=== PATIENT | female | born 1940 | race Caucasian/White ===

== ENCOUNTER 2016-05-01 10:20 | Observation (INO) | payer MEDICARE, OTHER ==
[2016-05-01 10:56] LABS: BASOPHIL# 0.1 X 10^3uL (0.0-0.1); BASOPHILS 1.1 % (0.0-2.0); EOSINOPHILS 0.3 % (0.0-6.0); HEMOGLOBIN 14.3 g/dL (12.0-16.0); LYMPHOCYTES 29.2 % (20.0-40.0); LYMPHOCYTES# 1.4 X 10^3uL (0.8-3.8); MEAN CELL VOLUME 97.5 fL (84.0-102.0); MEAN CORPUSCULAR HEMOGLOBIN 33.2 pg (29.0-35.0); MONOCYTES 13.4 % (2.0-10.0); MONOCYTES# 0.6 X 10^3uL (0.2-1.0); NEUTROPHILS# 2.7 X 10^3uL (2.6-6.7); PLATELET COUNT 158 X 10^3uL (130-440); RED BLOOD COUNT 4.31 X 10^6uL (4.20-6.10); RED CELL DISTRIBUTION WIDTH 11.5 % (11.5-14.5); WHITE BLOOD COUNT 4.8 X 10^3uL (3.9-10.7)
[2016-05-01 11:06] LABS: BLOOD UREA NITROGEN 14 mg/dL (7-17); CALCIUM 8.8 mg/dL (8.4-10.2); CHLORIDE 91 mmol/L (98-107); CREATININE 0.8 mg/dL (0.5-1.0); EST GLOMERULAR FILTRATION RATE > 60 mL/min; GLUCOSE 121 mg/dL (70-100); POTASSIUM 3.3 mmol/L (3.5-5.1); SODIUM 128 mmol/L (137-145)
[2016-05-01] MEDS ORDERED: NORMAL SALINE 500 ML IV ONE (11:15)
[2016-05-01 11:18] LABS: TROPONIN I < 0.012 ng/mL (0.00-0.034)
[2016-05-01] MEDS ORDERED: HOME MEDICATION LIST NEEDED 1 EA EACH MC ONE (11:47)
[2016-05-01] MEDS ORDERED: POTASSIUM CHLORIDE/NS 1,000 ML IV SCH ×2 (12:00→17:38)
[2016-05-01] MEDS ORDERED: POTASSIUM EFF 25 MEQ TABLET ONE (12:01)
[2016-05-01 12:32] LABS: URINE MUCUS NONE SEEN (Up to 25%); URINE RBC NONE SEEN (0-5/hpf)
--- NOTE | 2016-05-01 12:44 | ER NURSING DOCUMENTATION ---
Nurse's Notes [place] Name:Letty Wiggins Age:75 yrs Sex:Female :1940 Arrival Date:05/01/2016 Time:10:20 BedTrauma B Private MD:Meghna Guzman Diagnosis:Syncope;Hyponatremia;Hypokalemia Presentation: 05/01 10:20 Presenting complaint: Patient states: Pt describes brief syncopal episode two nights ma ago and again last night Witnessed by who states pt fell to knees the first time and was seated in chair the second Pt states felt hot prior or episode, had emesis after second episode States felt very hot at time of incidents Denies injury or pain, no SOB. 10:34 Acuity: STEFAN 2 st 10:58 Transition of care: Home. ma 10:58 Method Of Arrival: Private Vehicle ma Triage Assessment: 10:15 General: Appears in no apparent distress, well nourished, well groomed, Behavior is ma cooperative. Pain: Denies pain. Neuro: No deficits noted. Reports a syncopal episode. Historical: - Allergies: Codeine; SULFA (SULFONAMIDES); Tramadol HCl; - Home Meds: 1. levothyroxine 75 mcg oral tab 1 tab once daily 2. atorvastatin oral 1 tab once daily 3. paroxetine HCl 12.5 mg oral Tb24 1 tab once daily 4. budesonide 3 mg oral CECX 1 Cap once daily 5. HCTZ 25MG once daily 6. Caltrate 600 + D 600 mg (1,500 mg)-800 unit oral chew 7. One-A-Day Essential oral tab - PMHx: collagenous colitis, for which she takes budesonide, 3 mg daily.; HYPOTHYROIDISM; HIGH CHOLESTEROL; DEPRESSION; HYPERTENSION; Hyperlipidemia; Osteoarthritis; - PSHx: MASTECTOMY, LEFT; MASTECTOMY, RIGHT; Spinal surgery; - Tetanus: unknown. - Ebola Screening: : No symptoms or risks identified at this time. . - Immunization history: Flu Vaccine < 1 year. - Social history: Smoking status: Patient states former smoker of tobacco. Patient uses alcohol on a daily basis. Screenin:23 Infectious Disease Risk None. Abuse screen: Denies threats or abuse. Nutritional ma screening: No deficits noted. Assessment: 11:10 Neuro: Level of Consciousness is awake, alert. Cardiovascular: Rhythm is sinus rhythm. ma 11:15 Cardiovascular: Rhythm is sinus rhythm. ma Vital Signs: 10:20 BP 136 / 60; Pulse 67; Resp 12; Temp 98.5; Pulse Ox 88% on R/A; Weight 54.43 kg; Height ma 5 ft. 0 in. (152.40 cm); Pain 0/10; 10:45 BP 133 / 67; Pulse 63; Resp 15; Pulse Ox 96% on 2 lpm NC; Pain 0/10; ma 11:15 BP 136 / 60; Pulse 59; Resp 15; Pulse Ox 98% on 2 lpm NC; Pain 0/10; ma 11:45 BP 141 / 62; Pulse 60; Resp 14; Pulse Ox 99% on 2 lpm NC; Pain 0/10; ma 10:20 Body Mass Index 23.44 (54.43 kg, 152.40 cm) ma ED Course: 10:11 Oxygen Oxygen administration via nasal cannula @ 2L/min. ma 10:20 Inserted peripheral IV: 20 gauge in left antecubital area and blood collected. ma 10:20 shelter monitor on. Pulse ox on. NIBP on. ma 10:22 Patient arrived in ED. ds 10:22 Meghna Guzman MD is Private Physician. ds 10:24 Alejandro Ibrahim MD is Attending Physician. jm 10:34 Anjelica Hancock RN is Primary Nurse. st 10:[address] 10:37 EKG done. (by ED staff). Reviewed by Alejandro Ibrahim MD. ma 11:00 Port Xray Completed. tt 11:24 Valuables Given to family. ma 11:45 Meghna Guzman MD is Admitting Physician. jm 13:58 EKG attached ma Administered Medications: 11:10 Drug: NS 0.9% 500 ml; Route: IV; Rate: bolus; Site: left antecubital; Delivery: [place] ma Tubing; 11:15 Follow up: IV Status: Completed infusion; IV Intake: 500ml ma 11:55 Drug: Potassium Effervescent Tablet 50 mEq; Route: PO; ma 12:40 Follow up: Response: No adverse reaction ma Intake: 11:15 IV: 500ml; Total: 500ml. ma Outcome: 11:45 Decision to Admit by Provider. luke 12:43 Admitted to Med/surg ma 12:43 Condition: stable 12:43 Report given to Adry URRUTIA 12:43 Instructed on need to admit 12:43 Patient left the ED. ma Signatures: Anjelica Hancock, Anna Machuca RN, RN RN ma Srot, Marilyn, Jarett Reg Alejandro Zheng MD MD jm Terriere, Tracy tt
--- NOTE | 2016-05-01 12:44 | ER PHYSICIAN DOCUMENTATION ---
Physician Documentation [facility] Name:Letty Wiggins Age:75 yrs Sex:Female :1940 Arrival Date:05/01/2016 Time:10:20 BedTrauma B Private MD:Meghna Guzman ED PhysicianMeAlejandro hendricks Disposition: 05/01/16 11:45 Admit ordered for Meghna Guzman. Preliminary diagnosis are Syncope, Hyponatremia, Hypokalemia. - Bed requested for Medical/Surgical. - Condition is Fair. - Problem is new. - Symptoms are unchanged. 23 HR OBS Yes HPI: 05/01 11:01 This 75 yrs old Female presents to ER via Private Vehicle with complaints of jm Syncope. 11:01 The patient has experienced syncope, became unresponsive, lost consciousness. Onset: jm The symptom(s)/episode began/occurred yesterday. Duration: The patient has had multiple episodes, that last 3 minute(s). Context: the episode(s) was witnessed, by family, . Associated injury: The patient did not suffer any apparent associated injury. Associated signs and symptoms: The patient has no apparent associated signs or symptoms. Current symptoms: Currently, the patient is not experiencing any symptoms. The patient has not experienced similar symptoms in the past. The patient has not recently seen a physician. 75 yo F w 2 episodes of syncope over the weekend. On Sunday, she quickly got out of bed and rushed to the bathroom, b/c she thought she was going to vomit. She then got dizzy, flushed, and passed out on the floor. Her said she was there for about 3 minutes, unresponsive, but eventually came to. The other episode was at dinner last night. She again got dizzy and flushed while seated. She passed out for about a minute, slouched din the chair. She awoke and vomited everything she had just ate. She tried to get a clinic appointment this AM w Dr. Guzman, but the track helper wanted her seen in the ER first. Currently, pt feels normal. She is dealing w a cold, but that is getting better. . Historical: - Allergies: Codeine; SULFA (SULFONAMIDES); Tramadol HCl; - Home Meds: 1. levothyroxine 75 mcg oral tab 1 tab once daily 2. atorvastatin oral 1 tab once daily 3. paroxetine HCl 12.5 mg oral Tb24 1 tab once daily 4. budesonide 3 mg oral CECX 1 Cap once daily 5. HCTZ 25MG once daily 6. Caltrate 600 + D 600 mg (1,500 mg)-800 unit oral chew 7. One-A-Day Essential oral tab - PMHx: collagenous colitis, for which she takes budesonide, 3 mg daily.; HYPOTHYROIDISM; HIGH CHOLESTEROL; DEPRESSION; HYPERTENSION; Hyperlipidemia; Osteoarthritis; - PSHx: MASTECTOMY, LEFT; MASTECTOMY, RIGHT; Spinal surgery; - Tetanus: unknown. - Ebola Screening: : No symptoms or risks identified at this time. . - Immunization history: Flu Vaccine < 1 year. - Social history: Smoking status: Patient states former smoker of tobacco. Patient uses alcohol on a daily basis. ROS: 11:05 Constitutional: Negative for body aches, fever. 11:05 Eyes: Negative for blurry vision. 11:05 ENT: Negative for sinus congestion, sinus pain, sore throat. 11:05 Cardiovascular: Negative for chest pain, palpitations. 11:05 Respiratory: Negative for cough, shortness of breath. 11:05 Abdomen/GI: Positive for vomiting, Negative for abdominal pain, constipation. 11:05 Back: Negative for injury or acute deformity, pain with movement, radiated pain. 11:05 : Negative for urinary symptoms. 11:05 MS/extremity: Negative for swelling, tenderness. 11:05 Neuro: Positive for syncope. 11:05 Psych: Negative for drug dependence, alcohol dependence. 11:05 All other systems are negative. Exam: 11:18 Head/Face: Normocephalic, atraumatic. 11:18 Constitutional: The patient appears alert, awake. 11:18 Eyes: Pupils: equal, round, and reactive to light and accomodation, Extraocular movements: intact throughout. 11:18 ENT: Mouth: Oral mucosa: normal, Voice: is normal. 11:18 Neck: Exam negative for bruits, Thyroid: appears normal. 11:18 Cardiovascular: Rate: normal, Rhythm: regular. 11:18 Respiratory: Respirations: normal, Breath sounds: are normal. 11:18 Abdomen/GI: Bowel sounds: normal, Palpation: abdomen is soft and non-tender. 11:18 Musculoskeletal/extremity: DVT Exam: No signs of deep vein thrombosis. Calves: are non-tender, have equal circumference. 11:18 Skin: Appearance: Color: pink, no rash present. 11:18 Neuro: Mentation: is normal, Memory: is normal. 11:18 Psych: Behavior/mood is pleasant, cooperative, Affect is calm. Vital Signs: 10:20 BP 136 / 60; Pulse 67; Resp 12; Temp 98.5; Pulse Ox 88% on R/A; Weight 54.43 kg; Height ma 5 ft. 0 in. (152.40 cm); Pain 0/10; 10:45 BP 133 / 67; Pulse 63; Resp 15; Pulse Ox 96% on 2 lpm NC; Pain 0/10; ma 11:15 BP 136 / 60; Pulse 59; Resp 15; Pulse Ox 98% on 2 lpm NC; Pain 0/10; ma 11:45 BP 141 / 62; Pulse 60; Resp 14; Pulse Ox 99% on 2 lpm NC; Pain 0/10; ma 10:20 Body Mass Index 23.44 (54.43 kg, 152.40 cm) la MDM: 10:24 Patient medically screened. 11:43 Differential Diagnosis: cardiac arrhythmia, emotional response, idiopathic syncope, jm vasovagal episode. Data reviewed: vital signs, nurses notes, old medical records, lab test result(s), EKG, radiologic studies, and as a result, I will admit patient. Test interpretation: by ED physician or midlevel provider: plain radiologic studies, ECG. Counseling: I had a detailed discussion with the patient and/or guardian regarding: the historical points, exam findings, and any diagnostic results supporting the discharge/admit diagnosis, lab results, radiology results, the need for further work-up and treatment in the hospital. ECG:. Physician consultation: Meghna Guzman MD regarding admission, and will see patient shortly, later today. Admission orders: after a detailed discussion of the patient's condition and case, the admit orders are written by me. ED course: Pt here for syncope and found to be hyponatremic and hypokalemia. Arrythmia is high on diff dx, since her urine is dilute. Dr. Guzman updated on pt's condition and agrees to admission for replacement. . 13:58 EKG attached la 05/01 10:57 Order name: CBC AUTO DIF, MDIF/RMOR IF IND; Complete Time: 11:20 EDMS 05/01 11:18 Order name: BASIC METABOLIC PANEL; Complete Time: 11:20 [facility] 05/01 11:19 Order name: TROPONIN I; Complete Time: : [facility] 05/01 10:40 Order name: 12-lead EKG; Complete Time: 05/01 10:40 Order name: Continuous Cardiac Monitoring; Complete Time: : 05/01 10:40 Order name: I & O; Complete Time: 05/01 10:40 Order name: NPO; Complete Time: 05/01 10:40 Order name: Pulse Ox Continuous; Complete Time: 05/01 12:42 Order name: Oxygen; Complete Time: 12:42 ma EC:43 Rhythm is regular. QRS [place] is Normal. QRS interval is normal. QT interval is normal. No Q waves. T waves are Normal. No ST changes noted. Dispensed Medications: 11:10 Drug: NS 0.9% 500 ml; Route: IV; Rate: bolus; Site: left antecubital; Delivery: [place] ma Tubing; 11:15 Follow up: IV Status: Completed infusion; IV Intake: 500ml la 11:55 Drug: Potassium Effervescent Tablet 50 mEq; Route: PO; ma 12:40 Follow up: Response: No adverse reaction ma Signatures: Anna Horvath RN RN ma Meyer, John, MD MD jm
[2016-05-01 13:13] LABS: URINE APPEARANCE CLEAR; URINE BACTERIA NONE SEEN (<10/hpf); URINE BILIRUBIN NEGATIVE (NEGATIVE); URINE BLOOD NEGATIVE (NEGATIVE); URINE COLOR YELLOW; URINE GLUCOSE NORMAL (NEGATIVE); URINE KETONE NEGATIVE (NEGATIVE); URINE LEUKOCYTE ESTERASE NEGATIVE (NEGATIVE); URINE NITRITE NEGATIVE (NEGATIVE); URINE PROTEIN NEGATIVE (NEG - TRACE); URINE SQUAMOUS EPITHELIAL CELL 0-5/hpf (<= 15/hpf); URINE UROBILINOGEN NORMAL (NEG-1mg/dL); URINE WBC 0-4/hpf (0-4/hpf)
[2016-05-01 14:10] LABS: ALBUMIN 3.6 g/dL (3.5-5.0); BILIRUBIN, DIRECT 0.3 mg/dL (0.0-0.4); BILIRUBIN, TOTAL 0.5 mg/dL (0.2-1.3); TOTAL PROTEIN 6.3 g/dL (6.3-8.2)
[2016-05-01 14:28] LABS: FREE T4 1.68 ng/dL (0.78-2.19)
--- NOTE | 2016-05-01 14:34 | RADIOLOGY REPORT ---
A limited single portable view of the chest is compared with prior films dated . The heart and vessels are stable and unremarkable. The lung edward are clear. No infiltrate, fluid or pneumothorax is seen. IMPRESSION: Stable, unremarkable limited single portable view of the chest. MTDD
[2016-05-01 14:41] LABS: THYROID STIMULATING HORMONE 0.67 uIU/mL (0.47-4.68)
--- NOTE | 2016-05-01 16:27 | HISTORY & PHYSICAL ---
DATE OF ADMISSION: 05/01/16 ATTENDING PHYSICIAN: Meghna Guzman MD CHIEF COMPLAINT: Loss of consciousness. HISTORY OF PRESENT ILLNESS: This is a 75-year-old white female who presented to the Emergency Room after 2 episodes of syncope. She states that she went to lie down at approximately 7:30-8:00 p.m. 2 nights ago because she felt poorly. She developed a hot flash, and then got up to the bathroom because she felt quite nauseated. She then collapsed and landed on the floor without injuring herself. Her witnessed the event. He states that she was not responsive for 3-4 minutes. She was mildly confused initially when she came to, but then crawled back to bed. She states that she had no precedent chest pain, shortness of breath, lightheadedness or dizziness. She awoke the next day with no complaints. Last night after dinner, she was sitting in the chair and then developed another hot flash. She then had another syncopal episode which her states was less than 1 minute. She then developed profuse nonbloody, non -bilious vomiting after she awakened. Again, she had no chest pain, shortness of breath or lightheadedness. She then went to bed. She slept well. She states that she got up to go the bathroom at 4:30 a.m. this morning and could not fall back asleep. She awakened fatigued, but she had no further nausea or vomiting. No witnessed seizures. She called our triage and was told to go to the Emergency Room. REVIEW OF SYSTEMS: She has had a cough which is productive for the last 5 days; however, she is not able to bring up any sputum. She states that she needs to sleep in a chair because lying down made the cough worse. For the past 2 nights , she has been sleeping with 2 pillows. No fevers, chills or sweats. She has had a throat tickle but no true sore throat. She has had some postnasal drainage at night. She has not had any associated shortness of breath. No chest pain. No chest tightness. No wheezing. She has had some nonbloody diarrhea. For two days she used some Imodium with relief. They did go to [place] 2 days ago. She has not eaten any contaminated food that she is aware of. No bloody stools. No abdominal pain. No dysuria. No rash. No myalgias. No arthralgias. She continues to have some sciatica pain. PAST MEDICAL HISTORY 1. Hypertension. 2. Hyperlipidemia. 3. Hypothyroidism. 4. Chronic venous insufficiency. 5. Basal cell carcinoma left arm. 6. Glucose intolerance with non-fasting glucose 194 and Hemoglobin A1C 5.7. 7. Remote history of breast cancer 1981. 8. History of chronic cough. 9. Spinal stenosis of lumbar region with radiculopathy. 10. Depression. 11. Osteopenia. 12. History of anomalous atrioventricular excitation. 13. Atrophic vaginitis 14. Gastroesophageal reflux disease. 15. Generalized osteoarthritis. 17. Collagenous colitis. PAST SURGICAL HISTORY 1. 04/07/15: Status post lumbar laminectomy with right L5, S1 hemilaminectomy. Resection of a synovial cyst. 3. Laparoscopy for ovarian cyst. MEDICATIONS Paxil ER 12.5 mg daily. Atorvastatin 10 mg at bedtime. Levoxyl 75 mcg daily. Hydrochlorothiazide 25 mg daily. Flonase 2 squirts each nostril daily. Entocort EC 3 mg in the morning. Ocuvite daily. Ibuprofen 200 mg 2 tablets 3 times daily. Multivitamin daily. Calcium with vitamin D 500/200 International Units twice daily. ALLERGIES: Tramadol (dizziness, diaphoresis, hot flash), sulfa (hives), Codeine (sweaty and altered mental status). SOCIAL HISTORY: She has been to [place] since 1958. 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 Three children. Alcohol use is 1 daily. Tobacco use, she is a former smoker, 10 pack years, quit at the age of 26. FAMILY HISTORY: Mom at the age of 86, she had hypertension and osteoporosis. Dad at the age of 79 and had cerebrovascular accident and myocardial infarction. She has a sister with osteoporosis and breast cancer, which was diagnosed at the age of 74. DATA: Laboratories done in the Emergency Room, CBC is unremarkable. Basic metabolic panel, sodium 128, potassium 3.3, chloride 91. Nonfasting glucose 121. Troponin negative. Urinalysis with specific gravity 1.010, otherwise negative. EKG: Was reported normal in the Emergency Room. It is not available at the time of dictation. IMAGING: Chest x-ray was also reported as normal. Will review. PHYSICAL EXAMINATION VITAL SIGNS: In the emergency room temperature 98.5, respiratory rate 12, pulse 67, blood pressure 136/60, 88% on room air. She is 99% on 2 liters per minute per nasal cannula. GENERAL: This is a well-appearing, very pleasant female who appears younger than her stated age in no apparent distress. HEENT: Her sclerae are clear. Her pupils are equal, round and reactive to light. Extraocular movements are intact. Her TMs are clear. Her nares are clear. Her oropharynx is clear. NECK: Her neck is supple with no carotid bruits. No lymphadenopathy. No jugular venous distention. LUNGS: Good aeration throughout and clear. HEART: Regular rate and rhythm without any murmurs, rubs or gallops. ABDOMEN: Soft, nontender, nondistended with good bowel sounds and no masses or hepatosplenomegaly. EXTREMITIES: Warm. Chronic venous stasis changes. No cyanosis, clubbing or edema. Nontender. Negative Homans. No palpable cords. Good peripheral pulses. NEUROLOGIC: Alert, awake and oriented x3. Cranial nerves 2-12 are grossly intact without focal deficits. Her motor, sensation and DTRs are intact. ASSESSMENT: This is a 75-year-old female who presents with two syncopal episodes and hyponatremia. PLAN 1. Fluids, electrolytes and nutrition. Patient has been on Hydrochlorothiazide and Paxil for many years. Will hold Hydrochlorothiazide and most likely will have to change to alternative blood pressure medication as an outpatient. IV fluids. Will replete potassium and follow sodium. Check sodium studies. Antiemetics. 2. Cardiovascular. The initial EKG and cardiac enzyme negative. Will repeat troponin and EKG. Cardiology consult. 3. Respiratory. Patient with negative chest x-ray. Lungs are clear. She has had a precedent cough. Continue to follow. 4. Endocrine. Patient with history of hypothyroidism. Continue thyroid replacement. Check thyroid labs. 5. Psychosocial. Patient with long standing history of depression which has been stable. She is on Paxil which can cause hyponatremia. Will follow closely as an outpatient as she has been on Paxil for many years and would rather not change to a different agent given the difficulties of weaning from Paxil. 6. Disposition. Full COR. Admitted to observation. Anticipate discharge tomorrow. [facility]
--- NOTE | 2016-05-01 16:42 | CONSULTATION ---
DATE OF CONSULTATION: 05/01/16 REFERRING PHYSICIAN: Meghna Guzman MD PRIMARY CARE PHYSICIAN: Patti Lake MD REASON FOR CONSULTATION: Syncope. HISTORY OF PRESENT ILLNESS: The patient is a 75-year-old female without prior known cardiovascular disease. She was admitted to [facility] this morning 05/01/16 for further evaluation of syncope. She has had 2 syncopal episodes. The first episode occurred Sunday night, 2 nights prior to admission. She states that she was in her usual state of health when she began feeling nauseous and hot. She went into the bathroom where she thought she might vomit. She was standing over the sink, when she had a syncopal spell and collapsed to the ground. This was witnessed by her . He estimates that she was passed for a couple of minutes before coming to. The following evening, she had a second syncopal spell. This occurred while sitting. She again described feeling hot and took off her sweater. She then had a syncopal spell witnessed by her again. She states he thought she was passed out for a minute or so. She had emesis when she came to. She denied any chest pain or shortness of breath during either episode. She notified her primary care physician the following morning, whose office recommended that she be seen in the Emergency Department. she has been seen and admitted to telemetry for further evaluation. She is currently feeling well. She has had no prior similar episodes. She denies any recent exertional chest pain or dyspnea. She had a normal stress echocardiogram last year as part of a preoperative evaluation. EKG on admission reviewed by me, demonstrated sinus rhythm with no acute ST-T changes and normal intervals. Admission chest x-ray was benign. MEDICATIONS Hydrochlorothiazide. Atorvastatin. Paxil. Synthroid. Multivitamin. Calcium. REVIEW OF SYSTEMS GENERAL: Generally has been feeling well with no fevers or chills. No weight gain or weight loss. No stroke or transient ischemic attack-like symptoms. CHEST: No cough. No hemoptysis. No dyspnea on exertion. CARDIOVASCULAR: No chest pain. No palpitations. No dyspnea. No paroxysmal nocturnal dyspnea or orthopnea. No leg edema. ABDOMEN: No prior constipation, diarrhea or abdominal pain. MUSCULOSKELETAL: No significant arthritis. No joint swelling. No rash. PHYSICAL EXAMINATION VITAL SIGNS: Blood pressure 104/65, pulse 66 in sinus rhythm. O2 saturation 95 % on 1 liter. NECK: Neck veins are not elevated. Carotid upstrokes are normal with no bruits. CHEST: Chest sounds are clear to auscultation. No wheeze or rales. CARDIAC: No left ventricular, right ventricular or PA lift. S1 and S2 are normal. No murmur. No rub. ABDOMEN: Soft, nontender, nondistended. EXTREMITIES: No edema. Peripheral pulses are palpable and normal bilaterally in upper and lower extremities. NEURO: Nonfocal. LABORATORY DATA: Sodium was 128, potassium 3.3, chloride 91, glucose 121. AST 53 , ALT 61. TSH 0.67. NT-pro-BNP 173, troponin is normal. Hemoglobin 14.3. IMPRESSION 1. Syncopal episode, symptoms suspicious for bradyarrhythmia. 2. Prerenal azotemia likely precipitated by Hydrochlorothiazide. 3. Hypokalemia as above. 4. Prior normal Dobutamine stress echocardiogram 03/2015. 5. History of hypertension, currently well controlled. RECOMMENDATION: The patient will be monitored on telemetry overnight. If she has no events, would recommend an event monitor at discharge. I would discontinue Hydrochlorothiazide at this time and not resume. If needed for blood pressure, would consider an [place] inhibitor and/or Amlodipine. Cardiology will follow up with her in the morning. All questions answered. Thank you for asking us to participate in the care of this very nice patient. ALBINA
[2016-05-01] MEDS ORDERED: BUDESONIDE 3 MG PO SCH (17:15)
[2016-05-01] MEDS ORDERED: ONDANSETRON HCL 4 MG/2 ML VIAL IV PRN (17:34)
[2016-05-01] MEDS: ACETAMINOPHEN 325 MG TABLET PO PRN (20:23)
[2016-05-01] MEDS ORDERED: ATORVASTATIN CALCIUM 10 MG TABLET PO SCH (21:00)
[2016-05-02 02:42] VITALS: O2SAT 91
[2016-05-02 06:09] LABS: ALBUMIN 3.6 g/dL (3.5-5.0); ALKALINE PHOSPHATASE 65 U/L (38-126); ALT 57 U/L (9-52); AST 52 U/L (14-36); BILIRUBIN, DIRECT 0.3 mg/dL (0.0-0.4); BILIRUBIN, TOTAL 0.4 mg/dL (0.2-1.3); BLOOD UREA NITROGEN 10 mg/dL (7-17); CALCIUM 8.8 mg/dL (8.4-10.2); CHLORIDE 100 mmol/L (98-107); CREATININE 0.7 mg/dL (0.5-1.0); EST GLOMERULAR FILTRATION RATE > 60 mL/min; GLUCOSE 89 mg/dL (70-100); POTASSIUM 3.9 mmol/L (3.5-5.1); SODIUM 139 mmol/L (137-145); TOTAL PROTEIN 6.5 g/dL (6.3-8.2)
[2016-05-02 06:46] VITALS: BP 161/75; RESP 12; TEMP 98.5
[2016-05-02] MEDS: ACETAMINOPHEN 325 MG TABLET PO PRN (08:10)
--- NOTE | 2016-05-02 08:38 | PROGRESS NOTE: IM SOAP ---
IM: PN Subjective General: good appetite, no fever, no chills HEENT: no headache Cardiovascular: no chest pain, no palpitations, no dizziness Respiratory: cough (Improving.), no wheeze, no SOB Gastrointestinal: no abdominal pain, no nausea, no vomiting, no diarrhea Genitourinary: polyuria Musculoskeletal: no pain IM: PN Objective Exam - I&O/Vital Signs I&O: Intake & Output 05/01/16 05/02/16 05/02/16 21:59 05:59 13:59 Intake Total 660 900 240 Output Total 1999 1050 Balance -1340 -150 240 Intake: IV 600 Left Antecubital 600 Oral 660 300 240 Output: Urine 1999 1050 Other: Urine Appearance Clear Clear Urine Color Pale Pale Yellow Stool Size Small Stool Characteristics Formed Brown Voiding Method Toilet Toilet # Voids 3 4 # Bowel Movements 1 0 Vital Signs: Last Vital Signs Temp 36.9 C 05/02/16 06:44 Pulse 65 05/02/16 06:44 Resp 12 05/02/16 06:44 BP 161/75 05/02/16 06:44 Pulse Ox 91 05/02/16 06:44 Oxygen Flow Rate 1 Oxygen Delivery Method Nasal Cannula - Constitutional General appearance: Present: average body habitus. Absent: acute distress - Head Head exam: Present: atraumatic, normal inspection, normocephalic - Eye Eye exam: Present: EOMI, PERRL - ENT ENT exam: Present: mucous membranes moist - Neck Neck exam: Present: full ROM - Respiratory Respiratory exam: Present: clear. Absent: accessory muscle use, respiratory distress - Cardiovascular Cardiovascular exam: Present: RRR. Absent: clicks, gallop, systolic murmur - GI/Abdominal GI/Abdominal exam: Present: normal bowel sounds, soft. Absent: mass, organomegaly, tenderness - Extremities Exam Extremities exam: Absent: calf tenderness, Cordelia's Sign, edema - Neurological Exam Neurological exam: Present: alert, oriented X3 - Allied Health Notes Allied health notes reviewed: nursing - Lab Labs: Laboratory Last Values WBC 4.8 X 10^3uL (3.9-10.7) 05/01/16 10:45 RBC 4.31 X 10^6uL (4.20-6.10) 05/01/16 10:45 Hgb 14.3 g/dL (12.0-16.0) 05/01/16 10:45 Hct 42.0 % (36.0-48.0) 05/01/16 10:45 MCV 97.5 fL (84.0-102.0) 05/01/16 10:45 MCH 33.2 pg (29.0-35.0) 05/01/16 10:45 MCHC 34.0 g/dL (32.0-36.0) 05/01/16 10:45 RDW 11.5 % (11.5-14.5) 05/01/16 10:45 Plt Count 158 X 10^3uL (130-440) 05/01/16 10:45 MPV 10.0 fL (7.4-10.4) 05/01/16 10:45 Neutrophils % 56.0 % (54.0-75.0) 05/01/16 10:45 Lymphocytes % 29.2 % (20.0-40.0) 05/01/16 10:45 Eosinophils % 0.3 % (0.0-6.0) 05/01/16 10:45 Basophils % 1.1 % (0.0-2.0) 05/01/16 10:45 Neutrophils # 2.7 X 10^3uL (2.6-6.7) 05/01/16 10:45 Lymphocytes # 1.4 X 10^3uL (0.8-3.8) 05/01/16 10:45 Monocytes 13.4 % (2.0-10.0) H 05/01/16 10:45 Monocytes # 0.6 X 10^3uL (0.2-1.0) 05/01/16 10:45 Eosinophils # 0.0 X 10^3uL (0.0-0.4) 05/01/16 10:45 Basophils # 0.1 X 10^3uL (0.0-0.1) 05/01/16 10:45 Sodium 139 mmol/L (137-145) D 05/02/16 05:00 Potassium 3.9 mmol/L (3.5-5.1) 05/02/16 05:00 Chloride 100 mmol/L (98-107) 05/02/16 05:00 Carbon Dioxide 33 mmol/L (22-30) H 05/02/16 05:00 BUN 10 mg/dL (7-17) 05/02/16 05:00 Creatinine 0.7 mg/dL (0.5-1.0) 05/02/16 05:00 GFR Calculation > 60 mL/min 05/02/16 05:00 Glucose 89 mg/dL (70-100) 05/02/16 05:00 Calcium 8.8 mg/dL (8.4-10.2) 05/02/16 05:00 Total Bilirubin 0.4 mg/dL (0.2-1.3) 05/02/16 05:00 Direct Bilirubin 0.3 mg/dL (0.0-0.4) 05/02/16 05:00 AST 52 U/L (14-36) H 05/02/16 05:00 ALT 57 U/L (9-52) H 05/02/16 05:00 Alkaline Phosphatase 65 U/L (38-126) 05/02/16 05:00 Troponin I < 0.012 ng/mL (0.00-0.034) 05/01/16 16:40 NT-Pro-B Natriuret Pep 173 pg/mL (<450) 05/01/16 10:45 Total Protein 6.5 g/dL (6.3-8.2) 05/02/16 05:00 Albumin 3.6 g/dL (3.5-5.0) 05/02/16 05:00 TSH 0.67 uIU/mL (0.47-4.68) D 05/01/16 10:45 Free T4 1.68 ng/dL (0.78-2.19) 05/01/16 10:45 Urine Color Yellow 05/01/16 12:25 Urine Appearance Clear 05/01/16 12:25 Urine pH 7.0 (5-7) 05/01/16 12:25 Ur Specific [place] 1.010 (0.001-1.035) 05/01/16 12:25 Urine Protein Negative (NEG - TRACE) 05/01/16 12:25 Urine Ketones Negative (NEGATIVE) 05/01/16 12:25 Urine Blood Negative (NEGATIVE) 05/01/16 12:25 Urine Nitrate Negative (NEGATIVE) 05/01/16 12:25 Urine Bilirubin Negative (NEGATIVE) 05/01/16 12:25 Urine Urobilinogen Normal (NEG-1mg/dL) 05/01/16 12:25 Ur Leukocyte Esterase Negative (NEGATIVE) 05/01/16 12:25 Urine RBC None seen (0-5/hpf) 05/01/16 12:25 Urine WBC 0-4/hpf (0-4/hpf) 05/01/16 12:25 Ur Squamous Epith Cells 0-5/hpf (<= 15/hpf) 05/01/16 12:25 Urine Bacteria None seen (<10/hpf) 05/01/16 12:25 Urine Mucus None seen (Up to 25%) 05/01/16 12:25 Urine Osmolality Cancelled 05/01/16 13:45 Urine Sodium Cancelled 05/01/16 13:45 Urine Glucose Normal (NEGATIVE) 05/01/16 12:25 Assessment and Plan - Date of Encounter Date of Encounter: 05/02/16 (1) Syncope Status: Acute Assessment and plan: She presented with 2 episodes of syncope at home. Her cardiology evaluation here has been negative with 2 normal EKGs, negative cardiac enzymes, and no arrhythmias overnight on telemetry. I appreciate cardiology input. Consider event monitor as an outpatient. She will ambulate in the halls this morning and we will wean her oxygen. As long as she is an ambulating without difficulty , we will discharge later today. Current Visit: Yes (2) Hyponatremia Status: Acute Assessment and plan: Sodium 128 upon admission. She had an elevated nonfasting blood sugar of 194 recently with hemoglobin A1c 5.7. She has not had polydipsia and polyuria at home. We have started an evaluation for diabetes insipidus. Sodium has normalized this morning with IV fluids. Her urine sodium was 52. The remainder of her urine and antidiuretic hormone studies are pending. Hydrochlorothiazide stopped. We will continue Paxil as an outpatient. Follow sodium closely. Current Visit: Yes (3) Hypokalemia Status: Acute Assessment and plan: Hypokalemia also repleted overnight. Current Visit: Yes (4) Hypertension Status: Chronic Assessment and plan: She has long-standing hypertension. She has only taken hydrochlorothiazide in the past. As above, hydrochlorothiazide has been discontinued given low sodium. Low blood pressures in the 90s last evening. however overnight, her blood pressures were higher in the 130s to 150s. I appreciate Dr. Davidson's input. Will allow permissive blood pressures to 150s upon discharge. She will follow-up with Dr. Davidson as an outpatient. Current Visit: Yes (5) Abnormal LFTs Status: Acute Assessment and plan: Mildly elevated transaminases of uncertain etiology. She is on a statin. She has had elevation of AST to 41 in the past with resolution with repeat lab testing. We'll repeat LFTs as an outpatient. Current Visit: Yes (6) Hypothyroidism Status: Chronic Assessment and plan: TSH low normal and free T4 normal. Will continue same dose of levothyroxine for now. Current Visit: Yes - Time Spent With Patient Total time spent with greater than 50% in coordination of care (as documented) at patient's floor/unit and/or counseling patient: 16-24 minutes Estimated anticipated discharge: Later today. Quality Questions - VTE Prophylaxis Assessment VTE Present on Admission?: No Patient at risk for venous thromboembolism?: Yes VTE Risk Level: Moderate Risk VTE Medical Contraindication: N/A-VTE Prophylaxis ordered (1) Syncope Qualifiers: Encounter type: initial encounter (4) Hypertension Qualifiers: Hypertension type: essential hypertension Qualified Code(s): I10 - Essential (primary) hypertension (6) Hypothyroidism Qualifiers: Hypothyroidism type: acquired Qualified Code(s): E03.9 - Hypothyroidism, unspecified
[2016-05-02] MEDS ORDERED: PAROXETINE HCL 12.5 MG PO SCH (09:00)
[2016-05-02] MEDS ORDERED: LEVOTHYROXINE 75 MCG TABLET PO SCH (09:00)
[2016-05-02] MEDS ORDERED: MULTIVITAMINS THERAPEUTIC 1 TABLET PO SCH (09:00)
--- NOTE | 2016-05-02 09:03 | DC SUMMARY: IM Note ---
Discharge Summary: IM/Peds Provider: Date of Admission: 05/01/16 Admitting Provider: KAREN WILSON MD Attending Provider: KAREN WILSON MD Discharging Provider: KAREN WILSON MD Primary Care Provider: Discharge Date: 05/02/16 Consults: 05/01/16 13:23 Cardio [Cardiology Consult] [CONS] Routine Reason: Syncope 05/01/16 13:24 Pharmacy Consult [CONS] Routine Reason: medication reconciliation - Diagnosis (1) Syncope Status: Acute Qualifiers: Encounter type: initial encounter (2) Hyponatremia Status: Acute (3) Hypokalemia Status: Acute (4) Hypertension Status: Chronic Qualifiers: Hypertension type: essential hypertension Qualified Code(s): I10 - Essential (primary) hypertension (5) Abnormal LFTs Status: Acute (6) Hypothyroidism Status: Chronic Qualifiers: Hypothyroidism type: acquired Qualified Code(s): E03.9 - Hypothyroidism, unspecified - Time Spent with Patient Total time spent providing and/or coordinating discharge services: Time with patient DS: Greater than 30 minutes Discharge - Patient/Caregiver Discharge Instructions Activity Level: Regular. Ambulate at least TID. Diet: Regular Follow up: KAREN WILSON MD [Primary Care Provider] - 7 Days LISSETH SHIN MD [MD] - 7 Days Overall discharge status: patient is progressing back to baseline Print Language: MONTS[place] Disposition: HOME, SELF-CARE Discharge Summary Data - Medication History Medication History: Home Medications Atorvastatin Calcium [Lipitor*] 10 mg PO HS 05/01/16 Budesonide [Budesonide EC] 3 mg PO EVERY MORNING 05/01/16 Calcium Carbonate/Vitamin D3 [Caltrate 600 Plus D3 Tablet] 1 each PO DAILY 05/01 Hydrochlorothiazide [Hydrodiuril*] 25 mg PO DAILY 05/01/16 Levothyroxine [Synthroid*] 75 mcg PO DAILY 05/01/16 Multivitamins,Therapeutic [Thera] 1 tab PO DAILY 05/01/16 Paroxetine HCl [Paroxetine ER] 12.5 mg PO DAILY 05/01/16 Inpatient Medications 05/01/16 17:15 Budesonide [Budesonide EC] 3 mg PO EVERY MORNING 05/01/16 17:34 Ondansetron HCl [Zofran] 4 mg IV Q6H PRN 05/01/16 17:38 Potassium Chloride/Ns [KCl 20 Meq in Ns 1L] 1,000 ml IV CONT 05/01/16 19:54 Acetaminophen [Tylenol] 650 mg PO Q4H PRN 05/01/16 21:00 Atorvastatin Calcium [Lipitor] 10 mg PO HS 05/02/16 09:00 Levothyroxine [Synthroid] 75 mcg PO DAILY Multivitamins,Therapeutic [Thera] 1 tab PO DAILY Paroxetine HCl [Paroxetine ER] 12.5 mg PO DAILY Procedures and tests throughout hospitalization: Completed Lab Orders 05/01/16 10:45 BNP,NT-PRO [CHEM] Routine FREE T4 [CHEM] Routine HEPATIC PANEL [CHEM] Routine TSH [THYROID STIMULATING HORMONE] [CHEM] Routine 05/01/16 12:25 UA W/ MICRO -CULTURE IF IND [URINE] Stat URINE SODIUM,RANDOM [CHEM] Routine 05/01/16 16:40 TROPONIN I [CHEM] Routine 05/02/16 05:00 HEPATIC PANEL [CHEM] Routine Pending Orders 05/01/16 10:45 OSMOLALITY, SERUM [SEND] Routine 05/01/16 12:25 OSMOLALITY, URINE [SEND] Routine 05/01/16 13:23 Cardio [Cardiology Consult] [CONS] Routine 05/01/16 13:24 Pharmacy Consult [CONS] Routine 05/01/16 17:15 Budesonide [Budesonide EC] 3 mg PO EVERY MORNING 05/01/16 17:34 Ondansetron HCl [Zofran] 4 mg IV Q6H PRN 05/01/16 17:38 Potassium Chloride/Ns [KCl 20 Meq in Ns 1L] 1,000 ml IV CONT 05/01/16 18:37 NPO After midnight 0000 05/01/16 19:54 Acetaminophen [Tylenol] 650 mg PO Q4H PRN 05/01/16 21:00 Atorvastatin Calcium [Lipitor] 10 mg PO HS 05/02/16 05:00 CORTISOL [CHEM] AMDRAW 05/02/16 05:22 GENERIC ORDERABLE [SEND] Routine 05/02/16 07:00 EKG ONCE 05/02/16 09:00 Levothyroxine [Synthroid] 75 mcg PO DAILY Multivitamins,Therapeutic [Thera] 1 tab PO DAILY Paroxetine HCl [Paroxetine ER] 12.5 mg PO DAILY 05/02/16 Breakfast Regular [DIET] 05/02/16 Lunch Regular [DIET] Labs on day of discharge: Labs from last 24 hours 05/02/16 05/02/16 05/02/16 05:22 05:00 05:00 Sodium 139 D Potassium 3.9 Chloride 100 Carbon Dioxide 33 H BUN 10 Creatinine 0.7 GFR Calculation > 60 Glucose 89 Calcium 8.8 Total Bilirubin 0.4 Direct Bilirubin 0.3 AST 52 H ALT 57 H Alkaline Phosphatase 65 Troponin I Total Protein 6.5 Albumin 3.6 Cortisol Pending Urine Color Urine Appearance Urine pH Ur Specific [place] Urine Protein Urine Ketones Urine Blood Urine Nitrate Urine Bilirubin Urine Urobilinogen Ur Leukocyte Esterase Urine RBC Urine WBC Ur Squamous Epith Cells Urine Bacteria Urine Mucus Urine Osmolality Urine Sodium Urine Glucose Ref Lab Test Result Pending 05/01/16 05/01/16 05/01/16 16:40 13:45 13:45 Sodium Potassium Chloride Carbon Dioxide BUN Creatinine GFR Calculation Glucose Calcium Total Bilirubin Direct Bilirubin AST ALT Alkaline Phosphatase Troponin I < 0.012 Total Protein Albumin Cortisol Urine Color Urine Appearance Urine pH Ur Specific [place] Urine Protein Urine Ketones Urine Blood Urine Nitrate Urine Bilirubin Urine Urobilinogen Ur Leukocyte Esterase Urine RBC Urine WBC Ur Squamous Epith Cells Urine Bacteria Urine Mucus Urine Osmolality Cancelled Urine Sodium Cancelled Urine Glucose Ref Lab Test Result 05/01/16 05/01/16 05/01/16 12:25 12:25 12:25 Sodium Potassium Chloride Carbon Dioxide BUN Creatinine GFR Calculation Glucose Calcium Total Bilirubin Direct Bilirubin AST ALT Alkaline Phosphatase Troponin I Total Protein Albumin Cortisol Urine Color Yellow Urine Appearance Clear Urine pH 7.0 Ur Specific [place] 1.010 Urine Protein Negative Urine Ketones Negative Urine Blood Negative Urine Nitrate Negative Urine Bilirubin Negative Urine Urobilinogen Normal Ur Leukocyte Esterase Negative Urine RBC None seen Urine WBC 0-4/hpf Ur Squamous Epith Cells 0-5/hpf Urine Bacteria None seen Urine Mucus None seen Urine Osmolality Pending Urine Sodium 52 Urine Glucose Normal Ref Lab Test Result IM: Discharge Physical Exam - I&O/Vital Signs I&O: Intake & Output 05/01/16 05/02/16 05/02/16 21:59 05:59 13:59 Intake Total 660 900 240 Output Total 1999 1050 Balance -1340 -150 240 Intake: IV 600 Left Antecubital 600 Oral 660 300 240 Output: Urine 1999 1049 Other: Urine Appearance Clear Clear Urine Color Pale Pale Yellow Stool Size Small Stool Characteristics Formed Brown Voiding Method Toilet Toilet # Voids 3 4 # Bowel Movements 1 0 Vital Signs: Last Vital Signs Temp 36.9 C 05/02/16 06:44 Pulse 65 05/02/16 06:44 Resp 12 05/02/16 06:44 BP 161/75 05/02/16 06:44 Pulse Ox 91 05/02/16 06:44 Oxygen Flow Rate 1 Oxygen Delivery Method Nasal Cannula - Constitutional General appearance: Present: average body habitus. Absent: acute distress - Head Head exam: Present: atraumatic, normal inspection, normocephalic - Eye Eye exam: Present: EOMI, PERRL - ENT ENT exam: Present: mucous membranes moist - Neck Neck exam: Present: full ROM - Respiratory Respiratory exam: Present: clear. Absent: accessory muscle use, respiratory distress - Cardiovascular Cardiovascular exam: Present: RRR. Absent: clicks, gallop, systolic murmur - GI/Abdominal GI/Abdominal exam: Present: normal bowel sounds, soft. Absent: mass, organomegaly, tenderness - Extremities Exam Extremities exam: Absent: calf tenderness, Cordelia's Sign, edema - Neurological Exam Neurological exam: Present: alert, oriented X3 - Allied Health Notes Allied health notes reviewed: nursing
[2016-05-02 09:05] VITALS: PULSE 74
== END 2016-05-02 10:18 | disposition home or self-care (01) ==
LOC: ER 10:20 → IN 12:22
PROVIDERS: ADMIT Family Medicine; ATTEND Family Medicine
DX: R55 Syncope and collapse (principal); E87.1 Hypo-osmolality and hyponatremia; E87.6 Hypokalemia; E03.9 Hypothyroidism, unspecified; R79.89 Other specified abnormal findings of blood chemistry; Z79.899 Other long term (current) drug therapy; M85.89 Other specified disorders of bone density and structure, multiple sites; M48.06 Spinal stenosis, lumbar region; F32.9 Major depressive disorder, single episode, unspecified; Z85.3 Personal history of malignant neoplasm of breast; Z85.828 Personal history of other malignant neoplasm of skin; I87.2 Venous insufficiency (chronic) (peripheral); E74.39 Other disorders of intestinal carbohydrate absorption; N15.9 Renal tubulo-interstitial disease, unspecified; K52.831 Collagenous colitis
CPT/HCPCS: 36415; 71010; 80048; 80076; 81001; 82533; 83880; 83930; 83935; 84300; 84439; 84443; 84484; 84588; 85025; 93005; 93010; 99204; 99285; G0378; J3480; J7040